=== PATIENT | male | born 1985 | race Caucasian/White ===

== ENCOUNTER 2025-07-04 18:03 | Emergency (ER) | payer OTHER, SELFPAY ==
--- OUTSIDE RECORDS SUMMARY | 2022-12-05 13:08 | XMS_ITS | Encounter Summary ---
Author Organization [facility] Address [address] [place] [address] Care Team Providers Care Crown Presser Name Role Phone Unknown Primary Care Provider [phone] Encounter Details Date Type Department Care Team (Late st Contact Info) Description 12/05/2022 12:08 PM EST Hospital Encounter [facility] [address] [place] [address] Social History Tobacco Use Types Packs/Day Years Used Date Smoking Tobacco: Never Assessed Sex and Gender Information Value Date Recorded Sex Assigned at Male 09/09/2024 11:58 AM EST Legal Sex Male 8:01 PM EST Gender Identity Male 09/09/2024 11:58 AM EST Sexual Orientation Heterosexual (straight) 09/09 11:58 AM EST COVID-19 Exposure Response Date Recorded In the last 10 days, have yo u been in contact with someone who was confirmed or suspected to have Coronavirus/COVID-19? No / Unsure 12/05/2022 12:06 PM EST documented as of this encounter Plan of Treatment Not on file documented as of this encounter Procedures Procedure Name Priority Date/Time Associated Diagnosis Comments XR LUMBAR SPINE COMPLETE 4+ VIEWS Routine 12/05/2022 12:29 PM EST Pain documented in this encounter Results * XR Lumbar spine complete 4+ views (12/05/2022 12:29 PM EST) Anatomical Region Laterality Modality L-spine Digital Radiogra phy 12/05/2022 1:42 PM EST Impressions 12/05/2022 1:44 PM EST Trace retrolisthesis of L5 over S1. Narrative 12/05/2022 1:44 PM EST CLINICAL INFORMATION: Chronic central lumbar pain COMPARISON: None. TECHNIQUE: AP, lateral, bilateral oblique and coned down views of the lumbar spine were obtained. FINDINGS: Alignment: Trace retrolisthesis of L5 over S1. Bones: No lytic or blastic bone lesions. No fractures. Disc Levels: Disc space heights are generally preserved. No focal proliferative changes.. Soft Tissues: Unremarkable. Procedure Note Edin Sarmiento MD - 12/05/2022 CLINICAL INFORMATION: Chronic central lumbar pain COMPARISON: None. TECHNIQUE: AP, lateral, bilateral oblique and coned down views of thelumbar spine were obtained. FINDINGS: Alignment: Trace retrolisthesis of L5 over S1. Bones: No lytic or blastic bone lesions. No fractures. Disc Levels: Disc space heights are generally preserved. No focalproliferative changes.. Soft Tissues: Unremarkable. IMPRESSION: Trace retrolisthesis of L5 over S1. [facility] BERNAL DIAGNOSTIC IMAGING OR DERABLES Final Result documented in this encounter Visit Diagnoses Not on filedocumented in this encounter Care Teams Crown Presser Relationship Specialty Start Date End Date Unknown Unknow Provider Address PCP - General 12/05/22 documented as of this encounter
--- OUTSIDE RECORDS SUMMARY | 2023-03-23 13:34 | XMS_ITS | Encounter Summary ---
Author Organization [facility] Address [address] [place] [address] Care Team Providers Care Pleating Machine Operator Name Role Phone Unknown Primary Care Provider [phone] Reason for Referral * Diagnostic Imaging (Routine) - Closed Specialty Diagnoses / Procedures Referred By Contac t Referred To Contact Diagnoses Right lumbar radiculitis Herniated nucleus pulposus, L4-[address] Lumbar spine w/o contrast Mahad Brown MD Phone: tel: fax: Referral ID Status Reason Start Date Expiration Date Visits Re quested Visits Authorized [id number] Closed 03/19/2023 03/19/2024 1 1 Reason for Visit * Diagnostic Imaging (Routine) - Closed Specialty Diagnoses / Procedures Referred By Contac t Referred To Contact Diagnoses Right lumbar radiculitis Herniated nucleus pulposus, L4-[address] Lumbar spine w/o contrast Mahad Brown MD Phone: tel: fax: Referral ID Status Reason Start Date Expiration Date Visits Re quested Visits Authorized [id number] Closed 03/19/2023 03/19/2024 1 1 Encounter Details Date Type Department Care Team (Latest Contact Info) Description 03/23/2023 1:34 PM EDT Hospital Encounter [facility] [address] [place] [address] Right lumbar radiculitis; Herniated nucleus pulposus, L4-5 Social History Tobacco Use Types Packs/Day Years Used Date Smoking Tobacco: Never Assessed Sex and Gender Information Value Date Recorded Sex Assigned at Male 09/09/2024 11:58 AM EST Legal Sex Male 8:01 PM EST Gender Identity Male 09/09/2024 11:58 AM EST Sexual Orientation Heterosexual (straight) 09/09 11:58 AM EST documented as of this encounter Plan of Treatment Not on file documented as of this encounter Procedures Procedure Name Priority Date/Time Associated Diagnosis Comments CT LUMBAR SPINE W/O CONTRAST Routine 03/23/2023 1:48 PM EDT Right lumbar radiculitis Herniated nucleus pulposus, L4-5 documented in this encounter Results * CT Lumbar spine w/o contrast (03/23/2023 1:48 PM EDT) Anatomical Region Laterality Modality L-spine Computed Tomogra phy 03/24/2023 6:08 PM EDT Impressions 03/24/2023 6:28 PM EDT 1. Lumbosacral transitional vertebra with partially lumbarized S1 and rudimentary disc space at S1-2. If at any point in the future surgery is contemplated, further comparison between the MRI and plain radiographs would been a cyst. To ensure surgery at the appropriate level. 2. Lower lumbar degenerative changes at L4-5 and L5-S1, as described above. 3. At L5-S1, likely broad-based moderate to large sized RIGHT subarticular disc herniation with caudal migration of extruded disc fragment, though evaluation is limited by CT technique. Moderate canal stenosis with marked RIGHT lateral recess stenosis and possible compression of RIGHT traversing S1 nerve root. Further evaluation with MRI is recommended for better characterization of canal stenosis and nerve root impingement. Narrative 03/24/2023 6:28 PM EDT CLINICAL INFORMATION: RIGHT lumbar radiculitis. Evaluate for herniated nucleus pulposis at L4-5. TECHNIQUE: Protocol: Routine - CT Lumbar Spine without. Iterative reconstruction was utilized to minimize dose. COMPARISON: X-ray lumbar spine 12/05/2022. FINDINGS: Lumbosacral transitional vertebra with partially lumbarized S1 and rudimentary disc space at S1-2, in keeping with similar numbering system as prior radiograph of lumbar spine. Alignment: Similar trace retrolisthesis of L5 on S1. Vertebrae: Mild lower lumbar degenerative spondylosis. Soft Tissues: Unremarkable. Disc Levels: L1-2: Normal. L2-3: Normal. L3-4: Normal. L4-5: Minimal disc bulge and spondylitic ridging. No stenosis. L5-S1: Mild disc space narrowing. Mild disc bulge and spondylitic ridging. Suggestion of broad-based moderate to large fragment of RIGHT subarticular disc herniation with caudal migration of extruded disc fragment. Moderate canal stenosis. Severe RIGHT lateral recess stenosis and compression of the RIGHT traversing S1 nerve root. Mild facet arthropathy. Mild to moderate bilateral foraminal narrowing. Spinal Canal Contents: Grossly unremarkable, with likely moderate canal stenosis at L5-S1, though limited by CT technique. Procedure Note Mary West MD - 03/24/2023 CLINICAL INFORMATION: RIGHT lumbar radiculitis. Evaluate for herniatednucleus pulposis at L4-5. TECHNIQUE: Protocol: Routine - CT Lumbar Spine without. Iterative reconstruction was utilized to minimize dose. COMPARISON: X-ray lumbar spine 12/05/2022. FINDINGS: Lumbosacral transitional vertebra with partially lumbarized S1 andrudimentary disc space at S1-2, in keeping with similar numbering systemas prior radiograph of lumbar spine. Alignment: Similar trace retrolisthesis of L5 on S1. Vertebrae: Mild lower lumbar degenerative spondylosis. Soft Tissues: Unremarkable. Disc Levels: L1-2: Normal. L2-3: Normal. L3-4: Normal. L4-5: Minimal disc bulge and spondylitic ridging. No stenosis. L5-S1: Mild disc space narrowing. Mild disc bulge and spondylitic ridging.Suggestion of broad-based moderate to large fragment of RIGHT subarticulardisc herniation with caudal migration of extruded disc fragment. Moderatecanal stenosis. Severe RIGHT lateral recess stenosis and compression of the RIGHT traversing S1 nerveroot. Mild facet arthropathy. Mild to moderate bilateral foraminalnarrowing. Spinal Canal Contents: Grossly unremarkable, with likely moderate canalstenosis at L5-S1, though limited by CT technique. IMPRESSION: 1. Lumbosacral transitional vertebra with partially lumbarized S1 andrudimentary disc space at S1-2. If at any point in the future surgery iscontemplated, further comparison between the MRI and plain radiographswould been a cyst. To ensure surgery at the appropriate level. 2. Lower lumbar degenerative changes at L4-5 and L5-S1, as describedabove. 3. At L5-S1, likely broad-based moderate to large sized RIGHTsubarticular disc herniation with caudal migration of extruded discfragment, though evaluation is limited by CT technique. Moderate canalstenosis with marked RIGHT lateral recess stenosis and possible compression of RIGHT traversing S1 nerve root. Furtherevaluation with MRI is recommended for better characterization of canalstenosis and nerve root impingement. us Mahad Brown MD IMG CT ORDERABLES Final Result documented in this encounter Visit Diagnoses Diagnosis Right lumbar radiculitis Herniated nucleus pulposus, L4-5 Displacement of lumbar intervertebral disc without myelopathy documented in this encounter Care Teams Pleating Machine Operator Relationship Specialty Start Date End Date Unknown Unknow Provider Address PCP - General 12/05/22 documented as of this encounter
--- OUTSIDE RECORDS SUMMARY | 2024-03-01 17:30 | XMS_ITS ---
Author Organization [facility] Address [address] [place] [address] Care Team Providers Care Director Commercial Sales Name Role Phone Timur Rogers Primary Care Provider Unavailabl e Yecenia Norton DO Unavailable [phone] Migration, Provider Unavailable Unavailable Allergies Allergen (clinical drug ingredient) Drug/Non Drug Allergy documented on EMR Reaction Allergy Type Onset Date Status Substance with sulfonamide structure and antibacterial mechanism of action (substance) SULFA (uncoded) Unknown Allergy Active REASON FOR VISIT Multum To Medispan Conversion Encounter Medications Medication SIG (Take, Route, Frequency, Duration) Notes Start Date End Date Status NONE *Please review f or potential replacement for e-prescription and drug interaction check* Active Encounters Encounter Location Date Provider Diagnosis [facility] [address] [address] 03/01/2024 Provider Migration Plan Of Treatment No Information Progress Notes * Alejandro COUGHLINDOB:1984 (40 yo M)Acc No.[id number]:03/01/2024 Patient: Alejandro Bacon Provider: Bjorn sharp Migration :1985 A ge:39 Y S ex:Male Date:03/01/2024 Address:[address] [place] [address] , [address], [place] [id number] Pcp:Timur Rogers Subjective: * Chief Complaints: * M ultum To Medispan Conversion Encounter * Medications: T akingNONE , Notes to Pharmacist: *Please review for potential replacement for e-prescription and drug interaction check*Taking NONE , Notes to Pharmacist: *Please review for potential replacement for e-prescription and drug interaction check* * Allergies: S ULFA * Electronic signature of Ryley scott Migration on 07/04/2025 at 08:05 PM EDT Sign off status: Pending * Provider: Bjorn sharp Migration Date: 0 03/01/2024 Generated for Savannah arenas/Rad/Nellyitting on: 0 07/04/2025 08:05 PM EDT
--- NOTE | ~2025-07-04 | XR_ITS ---
CLINICAL HISTORY: swelling to L elbow 3 view left elbow Comparison: None provided Findings: No acute fractures. Normal alignment. No significant arthritic change or erosions. No joint effusion. No radiopaque foreign body. Soft tissue swelling about the medial and posterior elbow. IMPRESSION: 1. Periarticular soft tissue swelling about the elbow without fracture or dislocation. This document has been electronically signed by: Ryan Agrawal MD on 07/04/2025 19:39:24
[2025-07-04 18:08] VITALS: BP 112/63; PULSE 91; RESP 20; TEMP 36.8; O2SAT 97; BMI 27.5
--- NOTE | 2025-07-04 18:08 | ED_ITS ---
HPI - Extremity Injury (Upper) General Chief Complaint: Skin/Abscess/Foreign Body Stated Complaint: left swollen elbow Time Seen by Provider: 07/04/25 19:39 Source: patient Mode of arrival: ambulatory Limitations: no limitations History of Present Illness HPI narrative: This is 40 years old male presented to the emergency department with a 1 day history of left elbow swelling the elbow swelling is localized in the posterior aspect denies any fever chills MD complaint: injury to: left and elbow Onset (ago): day(s) (1) Handedness: right Severity: mild Relieving factors: none Exacerbating factors: none Related Data Previous Rx's ?Medication ?Instructions ?Recorded cephalexin 500 mg capsule 500 mg PO Q8H 7 days #21 cap s 07/04/25 Allergies Allergy/AdvReac Type Severity Reaction Status Date / Time Sulfa (Sulfonamide Allergy Unknown Verified 07/04/25 18:11 Antibiotics) Review of Systems 2 Constitutional: Constitutional: Denies fever(s) Musculoskeletal: Musculoskeletal: Reports as per HPI [facility] Past Medical History Attestation statement: The following information was validated with the patient. [facility] Narrative: Denies any major medical problems Social History Social History Advance Directives: No Advance Directives Information Provided: No Physical Exam 2 Exam: Exam: Looks well not toxic no distress Vital Signs: Vital Signs: Last Vital Signs Temp 98.2 F 07/04/25 18:08 Pulse 91 07/04/25 18:08 Resp 20 07/04/25 18:08 BP 112/63 07/04/25 18:08 Pulse Ox 97 07/04/25 18:08 O2 Del Method Room Air 07/04/25 18:08 BMI result Body Mass Index 27.5 Const: General: cooperative, healthy appearing, comfortable and no acute distress Nutritional Appearance: average body habitus O rientation/consciousness: patient oriented x3 HEENT: Head: Yes normal to inspection Face and sinus: Yes normal facial exam Neck: Neck: Yes normal visual inspection Resp: Effort & Inspection: normal respiratory effort Auscultation: clear to auscultation bilaterally Cardio: Jugular venous distension: no JVD Rate: regular rate Rhythm: r egular rhythm GI: Inspection: Yes normal to inspection Palpation (GI): Soft to palpation, not firm and nontender Auscultation: normal bowel sounds Skin: Other: There is redness tenderness in the left elbow Neuro: General: patient oriented x3 Extrem: Other: tenderness swelling left elbow see picture Course Course Course Narrative: This is a Rapid Medical Examination (RME) performed by Monique New PA-C in triage. Full HPI, ROS, assessment and treatment plan per primary provider in the Main ED. Hx: 40 yo M here for eval of L elbow swelling which he noticed around 0100 this morning. reports history of similar 8-10 yrs ago however not to this extent. PE/vitals: noted swelling to posterior L elbow, erythematous, ttp, fluctuant, warm Plan: xrs, screenign labs Medications Administered Discontinued Medications Generic Name Dose Route Start Last Admin Trade Name Freq PRN Reason Stop Dose Admin Ceftriaxone Sodium 2 gm 07/04/25 20:01 07/04/25 20:16 Ceftriaxone Sodium 2 Gm Vial IVPUSH 07/04/25 20:02 2 gm ONCE ONE Administration Lidocaine HCl 5 ml 07/04/25 20:01 07/04/25 20:16 Lidocaine Hcl 1 % Mpf 5 Ml Vial INFILTRATI 07/04/25 20:02 5 ml ONCE ONE Administration Medical Decision Making Medical Decision Making [facility] Narrative: Patient is here with a left olecranon bursitis bursa was aspirated ,antibiotic started received 2 g of IV ceftriaxone. Patient requesting discharge, we will discharge him home with p.o. antibiotic he understands if he gets worse we will return for admission he is comfortable with the plan of care Differential Diagnosis Differential Diagnoses: The differential diagnosis associated with the presentation includes Septic joint versus olecranon bursitis, exam is more consistent with olecranon bursitis Admission/Observation Consideration of admission/observation: Escalation of care including admission/observation considered And consider admission however he has not toxic afebrile no comorbidity no diabetes no sign of systemic symptoms I think we could try outpatient antibiotic therapy after 1 dose of the ceftriaxone Lab Data [facility] Lab Attestation statement: I reviewed the patient's lab results. 07/04/25 18:18 07/04/25 18:18 Labs: Lab Results 07/04/25 07/04/25 Range/Units 18:18 20:18 WBC 10.8 (4.8-10.8) X10*3/uL RBC 4.05 L (4.60-5.80) X10*6/uL Hgb 12.5 L (14.0-18.0) g/dl Hct 35.1 L (42.0-52.0) % MCV 86.7 (80.0-98.0) fL MCH 30.9 (27.0-33.0) pg MCHC 35.6 (31.0-36.0) g/dl RDW 12.5 (11.0-16.0) % Plt Count 245 (160-400) X10*3/uL MPV 9.5 (9.4-12.4) fL Immature Gran % (Auto) 0.3 (0.0-0.4) % Neut % (Auto) 73.9 H (45-73) % Lymph % (Auto) 16.7 L (20-40) % [place] % (Auto) 8.0 (2-11) % Eos % (Auto) 0.6 (0-4) % Baso % (Auto) 0.5 (0-2) % Lymph # (Auto) 1.8 (1.2-4.9) X10*3/uL [place] # (Auto) 0.9 (0.1-1.2) X10*3/uL Eos # (Auto) 0.1 (0.0-0.4) X10*3/uL Baso # (Auto) 0.1 (0.0-0.2) X10*3/uL Abs Immat Gran (auto) 0.03 (0.00-0.03) X10*3/uL Absolute Neuts (auto) 8.0 (2.0-8.3) x10*3/uL Absolute Nucleated RBC 0.000 (0.0-0.012) X10*3/uL Nucleated RBC % (auto) 0.0 (0.0-0.2) /100WBC Sodium 140 (135-145) mmol/L Potassium 3.7 (3.3-5.1) mmol/L Chloride 107 (96-108) mmol/L Carbon Dioxide 23 (22-29) mmol/L Anion Gap 14 (12-20) BUN 21 H (9-16) mg/dL Creatinine 0.90 (0.5-1.4) mg/dL Estim Creat Clear Calc 106.8 Estimated GFR > 60 Random Glucose 108 (60-115) mg/dL Uric Acid 5.8 (3.4-7.0) mg/dL Calcium 8.7 (8.4-10.2) mg/dL Magnesium 1.9 (1.6-2.6) mg/dL Total Bilirubin 1.0 (0.0-1.0) mg/dL AST 23 (5-37) U/L ALT 20 (0-40) U/L Alkaline Phosphatase 76 (39-117) U/L C-Reactive Protein 2.33 H (< or = 0.50) mg/dL Total Protein 6.5 (6.5-8.0) g/dL Albumin 4.3 (3.5-5.0) g/dL Synovial Source elbow Independent Interpretation I performed an independent interpretation of an: Plain X-Ray Interpretation: I reviewed interpreted the x-ray as an old fracture Radiology Impression Discussion of test interpretation with radiology: I have reviewed the radiologist's reading. Radiologist Impression: no fx Prescription Management I considered prescription management with: Antibiotic Procedures Procedure Narrative Procedure Narrative: Aspiration of the left olecranon bursa: Under local anesthesia sterile technique I aspirated about 10 cc of clear fluid from the bursa fluid was sent to the lab for culture sensitivity Discharge Plan Discharge Clinical Impression: Bursitis, olecranon Qualifiers: Laterality: left Qualified Code(s): M70.22 - Olecranon bursitis, left elbow Patient Disposition: Home, Self-Care Instructions: Elbow Bursitis (ED) Additional Instructions: Return to the emergency room if you have a fever chills worse, otherwise follow- up with your primary care physician Prescriptions: New cephalexin 500 mg capsule 500 mg PO Q8H 7 Days Qty: 21 0RF Print Language: Portuguese
[2025-07-04 18:38] LABS: MANUAL DIFF FLAG NO
[2025-07-04 18:40] LABS: Hematocrit 35.1 % (42.0-52.0); Hemoglobin 12.5 g/dl (14.0-18.0); Imm Gran Abs Auto 0.03 X10*3/uL (0.00-0.03); Imm Gran Pct Auto 0.3 % (0.0-0.4); Lymphocytes Absolute Auto 1.8 X10*3/uL (1.2-4.9); Mean Corpuscular HGB Conc 35.6 g/dl (31.0-36.0); Mean Corpuscular Hemoglobin 30.9 pg (27.0-33.0); Mean Corpuscular Volume 86.7 fL (80.0-98.0); NRBC Abs Auto 0.000 X10*3/uL (0.0-0.012); NRBC Pct Auto 0.0 /100WBC (0.0-0.2); Platelet Count 245 X10*3/uL (160-400); Red Blood Count 4.05 X10*6/uL (4.60-5.80); White Blood Count 10.8 X10*3/uL (4.8-10.8)
[2025-07-04 18:55] LABS: Alanine Aminotransferase 20 U/L (0-40); Albumin Level 4.3 g/dL (3.5-5.0); Alkaline Phosphatase 76 U/L (39-117); Anion Gap 14 (12-20); Aspartate Amino Transferase 23 U/L (5-37); Blood Urea Nitrogen 21 mg/dL (9-16); Calcium 8.7 mg/dL (8.4-10.2); Carbon Dioxide 23 mmol/L (22-29); Chloride 107 mmol/L (96-108); Creatinine Clr Calc Pharmacy 106.8; Estimated Glomerular Filt Rate > 60; Magnesium 1.9 mg/dL (1.6-2.6); Potassium 3.7 mmol/L (3.3-5.1); Sodium 140 mmol/L (135-145); Total Protein 6.5 g/dL (6.5-8.0); Uric Acid 5.8 mg/dL (3.4-7.0)
--- OUTSIDE RECORDS SUMMARY | 2025-07-04 20:02 | XMS_ITS | Clinical Summary ---
Author Organization [facility] Address [address] [place] [address] Care Team Providers Care Orchardist Name Role Phone Unknown Primary Care Provider [phone] Allergies Active Allergy Reactions Criticality Noted Date Comments Misc. Sulfonamide Containing Compounds Anaphylaxis High 08/14/2013 Pt told by primary doctor never to take sulfa based meds - unaware of reaction ? 20 yrs ago Sulfa Antibiotics Hives Medium 04/24/2011 Sulfur Hives Medium 04/24/2011 Medications No known medications Social History Tobacco Use Types Packs/Day Years Used Date Smoking Tobacco: Never Assessed Sex and Gender Information Value Date Recorded Sex Assigned at Male 09/09/2024 11:58 AM EST Legal Sex Male 8:01 PM EST Gender Identity Male 09/09/2024 11:58 AM EST Sexual Orientation Heterosexual (straight) 09/09 11:58 AM EST Last Filed Vital Signs Vital Sign Reading Time Taken Comments Blood Pressure 113/74 11/27/2024 3:53 PM EST Pulse 116 11/27/2024 3:53 PM EST Temperature 39.1 C (102.4 F) 11/27/2024 3:53 PM EST Respiratory Rate 18 11/27/2024 3:53 PM EST Oxygen Saturation 98% 11/27/2024 3:53 PM EST Inhaled Oxygen Concentration - - Weight - - Height - - Body Mass Index - - Plan of Treatment Health Maintenance Due Date Last Done Comments Hepatitis C Virus Screening 1985 HIV Screening 1998 DTaP/Tdap/Td Vaccines (1 - Tdap) 02/18/2004 Hepatitis B Vaccines (1 of 3 - 19+ 3-dose series) 02/18/2004 HPV Vaccines (1 - 3-dose SCDM series) 02/18/2012 COVID-19 Vaccine ( - season) 2024 01/02/2021, 12/04/2020 Influenza Vaccine 05/29/2025 09/03/2022, , 10/05/2019, Additional history exists Pneumococcal Vaccine: Pediatric (0-5 Years) and At-Risk Patients (6 to 49 Years) Aged Out No longer eligible based on patient's age to complete this topic Insurance [facility] Care Teams Orchardist Relationship Specialty Start Date End Date Unknown Unknow Provider Address PCP - General 12/05/22
--- OUTSIDE RECORDS SUMMARY | 2025-07-04 20:05 | XMS_ITS | Patient Health Record ---
Author Organization [facility] Address [address] [place] [address] Care Team Providers Care Hyperbaric Nurse Name Role Phone Sue Timur Primary Care Provider Unavailabl e Yecenia Norton DO Unavailable [phone] Allergies Allergen (clinical drug ingredient) Drug/Non Drug Allergy documented on EMR Reaction Allergy Type Onset Date Status Substance with sulfonamide structure and antibacterial mechanism of action (substance) SULFA (uncoded) Unknown Allergy Active Reason For Referral No Information Medications Medication SIG (Take, Route, Frequency, Duration) Notes Start Date End Date Status NONE *Please review f or potential replacement for e-prescription and drug interaction check* Active Social History Social History Additional Details Category Social Info Options Details Social History occupation - [employer] alcohol yes social Problems Problem Type SNOMED Code ICD Code Onset Dates Problem Status W/U Status Risk Notes Problem Complications du e to other internal orthopedic device, implant, and graft (996.78) Active confirmed Problem Bicipital tenosynovitis (83782283) BICIPITAL TENOSYNOVITIS (726.12) Active confirmed Problem Shoulder joint pain (357464307) PAIN, SHOULDER (719.41) Active confirmed Problem Disorder of rotator cuff (077940633) ROTATOR CUFF IMPINGEMENT (726.19) Active confirmed Problem Villonodular synovitis of the shoulder region (857512026) SYNOVITIS, SHOULDER (719.21) Active confirmed Plan Of Treatment No Information Insurance Providers Payer Name Payer Address Payer Phone Subscriber Number Group Number Insured Name Patient Relationship to Insured Coverage Start Date Coverage End Date [employer] [address] [place] [address] [phone] [id number] Alejandro Coughlin Self - patient is the insured Medical (General) History Medical History History ICD Code None Surgical History Surgery Date(Month/Year) wisdom teeth left index finger proximal phalanx ORIF Left shoulder RC/labral debridement/SAD- Dr. Cheung 07/2017 Left shoulder Rotator cuff patch- Dr. Goldman 2015 Hospitalization History Reason Date(Month/Year) per surgical Hx
--- OUTSIDE RECORDS SUMMARY | 2025-07-04 20:05 | XMS_ITS | Clinical Summary ---
Author Organization [address] Address [address] [place] [address] Phone Care Team Providers Care Telecommunication Engineer Name Role Phone Timur Rogers MD Primary Care Provider [phone] Allergies Active Allergy Reactions Criticality Noted Date Comments Sulfa (Sulfonamide Antibiotics) 08/14/2013 Pt told by primary doctor never to take sulfa based meds - unaware of reaction ? 20 yrs ago Medications oxaprozin (DAYPRO) 600 mg tablet Take 2 tablets (1,200 mg total) by mouth daily. Active tiZANidine (ZANAFLEX) 4 mg tablet Take 1 tablet (4 mg total) by mouth nightly. Active predniSONE (DELTASONE) 20 mg tablet Take 3 tablets (60 mg total) by mouth daily. Take with food. 9 tablet 03/11/2023 Active DULoxetine (CYMBALTA) 30 mg capsule Take 1 capsule (30 mg total) by mouth daily. 30 capsule 03/10/2023 Active oxyCODONE (ROXICODONE) 5 mg Immediate Release tablet Take 1 tablet (5 mg total) by mouth every 4 (four) hours as needed for pain. 8 tablet 03/10/2023 Active Active Problems Problem Noted Date Diagnosed Date Intractable pain 03/09/2023 Social History Tobacco Use Types Packs/Day Years Used Date Smoking Tobacco: Never Alcohol Use Standard Drinks/Week Comments Yes 0 (1 standard drink = 0.6 oz pur e alcohol) occasional Sex and Gender Information Value Date Recorded Sex Assigned at Not on file Legal Sex Male 2:35 PM EDT Gender Identity Not on file Sexual Orientation Not on file Last Filed Vital Signs Vital Sign Reading Time Taken Comments Blood Pressure 120/70 03/12/2023 2:00 PM EDT Pulse 61 03/12/2023 2:00 PM EDT Temperature 36.6 C (97.8 F) 03/12/2023 1:40 PM EDT Respiratory Rate 20 03/12/2023 2:00 PM EDT Oxygen Saturation 97% 03/12/2023 2:00 PM EDT Inhaled Oxygen Concentration - - Weight 78.4 kg (172 lb 13.5 oz) 023 11:35 AM EDT Height 174 cm (5' 8.5 ) 08/14/2013 9:52 AM EDT Body Mass Index 25.9 08/14/2013 9:52 AM EDT Plan of Treatment Health Maintenance Due Date Last Done Comments HIV screening 1998 Hepatitis C screening 2003 Lipid disorder screening 2025 Covid-19 vaccine series ( season) 2025 01/02/2021, 12/04/2020 Influenza vaccine 06/29/2025 09/03/2022, , 10/01/2020, Additional history exists Tetanus adult (Td q 10,TDAP once) 05/19/2031 05/19/2021, 03/24/2011 RSV Immunization (1 - 1-dose 75+ series) 02/18/2060 Meningococcal Vaccine Aged Out 03/24/2011 No roxana rex eligible based on patient's age to complete this topic Meningococcal B Vaccine Aged Out No l onger eligible based on patient's age to complete this topic Pneumococcal Vaccine (2 - 49 years) Aged Out No longer eligible based on patient's age to complete this topic Insurance Advance Directives * Full Code (Latest Code Status on File) Date Activated Date Inactivated Comments 03/09/2023 2:00 PM 03/10/2023 1:27 PM Question Answer Comments With Whom was the Code Status Discussed? Patient Care Teams Telecommunication Engineer Relationship Specialty Start Date End Date Timur Rogers MD [address] [place] [address] PCP - General Internal Medicine 08/04/13
--- OUTSIDE RECORDS SUMMARY | 2025-07-04 20:05 | XMS_ITS | Clinical Summary ---
[place] [address] Care Team Providers Care Sr. Director Name Role Phone Unavailable Primary Care Provider Unavailabl e Allergies Active Allergy Reactions Criticality Noted Date Comments Sulfa (Sulfonamide Antibiotics) 11/23/2019 Other Reaction(s): N/A Medications lidocaine 5 % patch 1 EA TOP USE DIRECTED #30 PATCH REF 0 1 Active ibuprofen 600 mg tablet 600 MG PO Q6H #30 TAB REF 0 1 Active azithromycin 250 mg tablet 250 MG PO USE DIRECTED #6 TAB REF 0 1 Active amoxicillin-pot clavulanate 875-125 mg tablet 1 TAB PO BID 7 Days #14 REF 0 1 Active naproxen 500 mg tablet 500 MG PO BID #20 REF 0 2 Active Social History Tobacco Use Types Packs/Day Years Used Date Smoking Tobacco: Never Assessed Sex and Gender Information Value Date Recorded Sex Assigned at Not on file Legal Sex Male 9:40 PM EST Gender Identity Not on file Sexual Orientation Not on file Plan of Treatment Health Maintenance Due Date Last Done Comments HIV Screening 1985 Lipid Panel 1985 Varicella Vaccines (1 of 2 - 13+ 2-dose series) 1998 Hepatitis C Screening 2003 Hepatitis B Vaccines (1 of 3 - 19+ 3-dose series) 02/18/2004 Influenza Vaccine (#1) 2025 Zoster Vaccines (1 of 2) 2035 HIB Vaccines Aged Out No longer eligi ble based on patient's age to complete this topic Hepatitis A Vaccines Aged Out No long er eligible based on patient's age to complete this topic IPV Vaccines Aged Out No longer eligi ble based on patient's age to complete this topic Meningococcal Vaccine Aged Out No roxana rex eligible based on patient's age to complete this topic Pneumococcal Vaccine: Pediat rics (0 to 5 Years) and At-Risk Patients (6 to 64 Years) Aged Out No longer eligible b ased on patient's age to complete this topic
--- OUTSIDE RECORDS SUMMARY | 2025-07-04 20:05 | XMS_ITS ---
Author Name [facility] Organization Unknown Allergies Allergen Reaction Severity Comment Documented Date Source Statu s SULFA (SULFONAMIDE ANTIBIOTICS) Pt told by primary doctor never to take sulfa based meds - unaware of reaction ? 20 yrs ago 08/14/2013 [facility] active Problems Problem Status Onset Date Problem Type Date of Resoluti on Source Intractable pain active 2023-03-09 ProblemAct [facility] Encounters Encounter Type Encounter Reason Primary Diagnosis Location Date Ambulatory Fever, unspecified Fever, unspecified [facility] 11/27/2024 Ambulatory Acute cough Acute cough [facility] [facility] [facility] 09/09/2024 Ambulatory Radiculopathy, [place] [facility] Inpatient back pain [facility] 03/12 Ambulatory Generalized pain [facility] 03/09/2023 Ambulatory Backache, unspecified [facility] 03/08/2023 Ambulatory [place] [facility] 12/05/2022 Emergency GROIN PAIN [id number] LEFT TESTICULAR PAIN [facility]) 09/07/2022 Emergency Unspecified otit is media [facility] 08/23/2022 Care Team Organization Name Specialty Phone Email Start Date End [facility] 03/11/2025 [facility] Timur [facility] 023 06/16/2024 [place] [facility] 12/05/2022 01/14/2025 [place] [facility] 12/05/2022 12/05/2022 [facility]) REFERRING Primary Care 09/12/2022 06/16/2024 [facility]) REFERRING Primary Care 09/07/2022 09/07/2022 [facility] AMNA PAUL Primary Care 08/2308/23/2022
--- NOTE | 2025-07-04 20:13 | ED_ITS ---
HPI - General Adult General Chief complaint: Skin/Abscess/Foreign Body Stated complaint: left swollen elbow Time Seen by Provider: 07/04/25 19:39 Related Data Allergies Allergy/AdvReac Type Severity Reaction Status Date / Time Sulfa (Sulfonamide Allergy Unknown Verified 07/04/25 18:11 Antibiotics) [facility] Social History Social History Advance Directives: No Advance Directives Information Provided: No Physical Exam ED Vital Signs: Vital Signs - 24 hr 07/04/25 18:08 Temperature 98.2 F Pulse Rate 91 Respiratory Rate 20 Blood Pressure 112/63 Pulse Oximetry 97 Oxygen Delivery Method Room Air BMI result Body Mass Index 27.5 Medical Decision Making Lab Data 07/04/25 18:18 07/04/25 18:18 Labs: Lab Results 07/04/25 Range/Units 18:18 WBC 10.8 (4.8-10.8) X10*3/uL RBC 4.05 L (4.60-5.80) X10*6/uL Hgb 12.5 L (14.0-18.0) g/dl Hct 35.1 L (42.0-52.0) % MCV 86.7 (80.0-98.0) fL MCH 30.9 (27.0-33.0) pg MCHC 35.6 (31.0-36.0) g/dl RDW 12.5 (11.0-16.0) % Plt Count 245 (160-400) X10*3/uL MPV 9.5 (9.4-12.4) fL Immature Gran % (Auto) 0.3 (0.0-0.4) % Neut % (Auto) 73.9 H (45-73) % Lymph % (Auto) 16.7 L (20-40) % [place] % (Auto) 8.0 (2-11) % Eos % (Auto) 0.6 (0-4) % Baso % (Auto) 0.5 (0-2) % Lymph # (Auto) 1.8 (1.2-4.9) X10*3/uL [place] # (Auto) 0.9 (0.1-1.2) X10*3/uL Eos # (Auto) 0.1 (0.0-0.4) X10*3/uL Baso # (Auto) 0.1 (0.0-0.2) X10*3/uL Abs Immat Gran (auto) 0.03 (0.00-0.03) X10*3/uL Absolute Neuts (auto) 8.0 (2.0-8.3) x10*3/uL Absolute Nucleated RBC 0.000 (0.0-0.012) X10*3/uL Nucleated RBC % (auto) 0.0 (0.0-0.2) /100WBC Sodium 140 (135-145) mmol/L Potassium 3.7 (3.3-5.1) mmol/L Chloride 107 (96-108) mmol/L Carbon Dioxide 23 (22-29) mmol/L Anion Gap 14 (12-20) BUN 21 H (9-16) mg/dL Creatinine 0.90 (0.5-1.4) mg/dL Estim Creat Clear Calc 106.8 Estimated GFR > 60 Random Glucose 108 (60-115) mg/dL Uric Acid 5.8 (3.4-7.0) mg/dL Calcium 8.7 (8.4-10.2) mg/dL Magnesium 1.9 (1.6-2.6) mg/dL Total Bilirubin 1.0 (0.0-1.0) mg/dL AST 23 (5-37) U/L ALT 20 (0-40) U/L Alkaline Phosphatase 76 (39-117) U/L C-Reactive Protein 2.33 H (< or = 0.50) mg/dL Total Protein 6.5 (6.5-8.0) g/dL Albumin 4.3 (3.5-5.0) g/dL Discharge Plan Discharge Print Language: Urdu
[2025-07-04] MEDS: Lidocaine HCl 1 % MPF 5 ML VIAL INFILTRATI (20:16)
[2025-07-04 20:23] LABS: Source Synovial Fluid elbow
[2025-07-04 20:39] LABS: MN% 12.9 %; PMN% 87.1 %; RBC Synovial Fluid 0.002 X10*6/uL
[2025-07-04 20:41] VITALS: BP 112/63; PULSE 91; RESP 20; TEMP 36.8; O2SAT 97
[2025-07-04 20:57] LABS: BF Shift QC OK YES; Lymphocytes Synovial Fluid 2 %; Monocytes Synovial Fluid 8 %; Neutrophils Synovial Fluid 90 %
[2025-07-04 20:58] LABS: Man Diluent Bkgrd OK YES
--- NOTE | 2025-07-08 07:55 | PC.NURSE ---
MICROBIOLOGY RESULT DISCUSSED WITH DR VEGA. PT DISCH ON KEFLEX WHICH WILL COVER STAPH INFECTION PER MD
== END 2025-07-04 20:41 | disposition home or self-care (01) ==
PROVIDERS: Physician Assistant Medical; Emergency Provider Emergency Medicine
DX: M70.22 Olecranon bursitis, left elbow (principal); M79.89 Other specified soft tissue disorders
CPT/HCPCS: 36415; 73080; 80053; 83735; 84550; 85025; 86140; 87070; 87073; 87077; 87186; 87205; 89051; 96374; 99282; 99284; J0696; J2003

== ENCOUNTER → 2025-07-04 18:11 | Outpatient (BNV) | payer OTHER, SELFPAY | PROVIDERS: Emergency Provider Emergency Medicine; Visit Provider Radiology Diagnostic Radiology | DX: M25.422 Effusion, left elbow (principal) | CPT/HCPCS: 73080 ==